=== PATIENT | female | born 1980 | race Two or more races ===

== ENCOUNTER → 2024-06-02 | Outpatient (BNVA) | payer BC, SELFPAY | END | disposition home or self-care (01) | PROVIDERS: PCP Nurse Practitioner Family; Referring Provider Nurse Practitioner Family; Visit Provider Nurse Practitioner Family | DX: M17.0 Bilateral primary osteoarthritis of knee (principal) | CPT/HCPCS: J2003; 99215; J3301; J3490 ==

== ENCOUNTER → 2024-06-03 | Outpatient (CLI) | payer BC, SELFPAY ==
--- NOTE | 2024-06-03 | XR_ITS ---
Examination: Knee bilateral, 6 views Technique: Knee AP, lateral, oblique each knee total 6 views Date and time of exam: June 03, 2024 0951 hours INDICATIONS: Bilateral knee pain 3 years. FINDINGS: Mild osteopenia Bilateral mild tricompartment osteoarthritis, most prominent medial patellofemoral joints No fracture or dislocation involving either knee IMPRESSION: Bilateral mild tricompartment osteoarthritis
== END | disposition home or self-care (01) ==
PROVIDERS: PCP Nurse Practitioner Family; Referring Provider Nurse Practitioner Family; Visit Provider Nurse Practitioner Family
DX: M17.0 Bilateral primary osteoarthritis of knee (principal)
CPT/HCPCS: 73562

== ENCOUNTER → 2024-06-14 | Outpatient (BNVA) | payer BC, SELFPAY | END | disposition home or self-care (01) | PROVIDERS: PCP Nurse Practitioner Family; Referring Provider Nurse Practitioner Family; Visit Provider Nurse Practitioner Family | DX: R73.03 Prediabetes (principal); Z71.3 Dietary counseling and surveillance; M25.561 Pain in right knee; M25.562 Pain in left knee; G89.29 Other chronic pain; E66.9 Obesity, unspecified; Z68.30 Body mass index [BMI] 30.0-30.9, adult; M17.9 Osteoarthritis of knee, unspecified; M22.2X9 Patellofemoral disorders, unspecified knee | CPT/HCPCS: 99213 ==

== ENCOUNTER → 2024-07-03 | Outpatient (CLI) | payer BC, SELFPAY ==
--- NOTE | 2024-07-03 12:00 | XR_ITS ---
Exam: MRI knee without contrast, left Indications: Anterior posterior knee pain and weakness in the GE joint clicking 1 year after workout injury to the knee Date and time of exam: July 03, 2024 1144 hrs. Technique: Multiple axial, coronal, and sagittal sections on the knee have been obtained. T2-Weighted sagittal, fat-suppressed images, TR 3,500, TE 62, T2 weighted coronal fat-saturated images, TR 3,500, TE 62 Proton density sagittal sections, TR 1800, TE 31. T-1 weighted coronal images, TR 524, TE 13.0 Findings: Medial meniscus anterior horn intact. Medial meniscus, body is intact. Posterior horn medial meniscus intact. Lateral meniscus anterior horn is intact Lateral meniscus, body is intact Posterior horn lateral meniscus is intact Anterior cruciate ligament moderately attenuated Posterior cruciate ligament appears intact. Knee effusion is small. Quadriceps and patellar tendons appear intact. There is no evidence of tendinosis. Inflammatory change or fracture of Hoffa's fat pad is not seen. Medial patellar facet demonstrates mild thinning. Lateral patellar facet cartilage demonstrates mild thinning. Trochlear cartilage demonstrates mild thinning. Marrow signal adequate. Medial collateral ligament appears intact. No meniscocapsular separation is seen. Illiotibial band and fibular collateral ligament are intact. Biceps femoris tendons appear intact. Medial femoral condylar articular cartilage demonstrates mild thinning. Lateral femoral condylar articular cartilage demonstratesmild thinning. Tibial plateau cartilage demonstrates mild thinning. Impression: Moderate attenuation anterior cruciate ligament
== END | disposition home or self-care (01) ==
LOC: SMRI 11:35
PROVIDERS: PCP Nurse Practitioner Family; Referring Provider Nurse Practitioner Family; Visit Provider Nurse Practitioner Family
DX: M25.862 Other specified joint disorders, left knee (principal); G89.29 Other chronic pain
CPT/HCPCS: 73721

== ENCOUNTER → 2024-07-09 | Outpatient (CLI) | payer BC, SELFPAY ==
--- NOTE | 2024-07-09 | XR_ITS ---
Examination: Lumbar spine 3 views Technique one AP lateral coned lateral lower lumbar spine 3 views Exam date and time: July 09, 2024 1331 hours INDICATIONS: Onset lower back pain this week. FINDINGS: Adequate alignment lumbar vertebral bodies No lumbar fracture Moderate disc narrowing L5-S1 IMPRESSION: Moderate disc narrowing L5-S1
== END | disposition home or self-care (01) ==
PROVIDERS: PCP Nurse Practitioner Family; Referring Provider Nurse Practitioner Family; Visit Provider Nurse Practitioner Family
DX: M48.07 Spinal stenosis, lumbosacral region (principal)
CPT/HCPCS: 72100